=== PATIENT | female | born 1950 | race Caucasian/White ===

== ENCOUNTER → 2024-05-16 12:49 | Outpatient (REF) | payer MEDICARE, OTHER, SELFPAY | LOC: HWRAD 12:49 | PROVIDERS: ATTENDING PHYSICIAN Nurse Practitioner | DX: K85.10 Biliary acute pancreatitis without necrosis or infection (principal) | CPT/HCPCS: 76700 ==

== ENCOUNTER → 2024-06-17 10:55 | Outpatient (REF) | payer MEDICARE, OTHER, SELFPAY | LOC: SDSPAT 10:55 | PROVIDERS: ATTENDING PHYSICIAN Surgery; FAMILY PHYSICIAN Nurse Practitioner | DX: K80.50 Calculus of bile duct without cholangitis or cholecystitis without obstruction (principal) | CPT/HCPCS: 36415; 93005 ==

== ENCOUNTER → 2024-06-26 06:41 | Outpatient (REF) | payer MEDICARE, OTHER, SELFPAY ==
[2024-06-26 07:09] LABS: % Basophils 0.4 % (0-2); % Eosinophils 2.3 % (0-6); % Immature Granulocytes 0.3 % (0-0.5); % Lymphocytes 27.6 % (20.5-51.1); % Monocytes 6.7 % (1.7-9.3); % Neutrophils 62.7 % (42.2-75.2); Absolute Eosinophils 0.2 10^3/uL (0-0.7); Absolute Lymphocytes 2.1 10^3/uL (1.2-3.4); Absolute Monocytes 0.5 10^3/uL (0.1-0.6); Absolute Neutrophils 4.7 10^3/uL (1.4-6.5); Hematocrit 36.3 % (37.0-47.0); Mean Corp Hgb Conc. 33.1 g/dL (33.0-37.0); Mean Corpuscular Volume 84.6 fL (81.0-99.0); Mean Platelet Volume 10.3 fL (7.4-10.4); Nucleated Red Blood Cells % 0 %; Platelet Count 324 10^3/uL (130-400); Red Blood Cell Count 4.29 10^6/uL (4.20-5.40); Red Cell Dist. Width 15.1 % (11.5-14.5); White Blood Cell Count 7.4 10^3/uL (4.8-10.8)
[2024-06-26 07:38] LABS: ALT (SGPT) 17 U/L (0-35); AST (SGOT) 19 U/L (14-36); Albumin 4.4 g/dl (3.5-5.0); Alkaline Phosphatase 111 U/L (38-126); Blood Urea Nitrogen 25 mg/dl (7-17); Calcium 9.9 mg/dl (8.4-10.2); Carbon Dioxide 23 mmol/L (22-30); Chloride 105 mmol/L (98-107); Glucose 146 mg/dl (70-99); HDL Cholesterol 48 mg/dl; LDL Cholesterol, Calculated 116 mg/dl; Potassium 4.6 mmol/L (3.5-5.1); Sodium 144 mmol/L (135-145); Total Bilirubin 0.4 mg/dl (0.2-1.3); Total Cholesterol 189 mg/dl (50-199); Total Protein 6.6 g/dl (6.3-8.2); Triglyceride 126 mg/dl (10-149); Very Low Density Lipoprotein 25 mg/dl (0-30); eGFR 42.88
[2024-06-26 08:08] LABS: TSH 5.93 uIU/ml (0.47-4.68)
[2024-06-26 08:55] LABS: Glycohemoglobin (HgbA1c) 6.6 % (4.0-5.6)
== END ==
LOC: REG 06:41
PROVIDERS: ATTENDING PHYSICIAN Nurse Practitioner
DX: K81.9 Cholecystitis, unspecified (principal); I10 Essential (primary) hypertension; E03.9 Hypothyroidism, unspecified; E78.5 Hyperlipidemia, unspecified; R73.01 Impaired fasting glucose; N18.31 Chronic kidney disease, stage 3a
CPT/HCPCS: 36415; 80053; 80061; 83036; 84443; 85025

== ENCOUNTER 2024-07-10 09:01 | Inpatient (IN) | payer MEDICARE, OTHER, SELFPAY ==
[2024-06-17 12:27] VITALS: BMI 34.1
[2024-07-09] VITALS (19 sets, daily range): BP systolic 40–138; BP diastolic 41–92; BMI 34.1
[2024-07-09] MEDS: TYLENOL 1000 MG PO (06:32)
--- NOTE | 2024-07-09 07:24 | HP.FOC2 ---
Focused History & Physical
Chief Complaint
HPI:
Chief Complaint: Postprandial right upper quadrant pain
HPI / Indication for Planned Procedure: Laparoscopic cholecystectomy
Relevant Past Medical History: Hypertension
Relevant Social History: Negative
Relevant Family History: Negative
Relevant Past Surgical History: Negative
Review of Systems
Review of Pertinent Systems: All Systems Negative
Medication
See Medication form for detailed medications: Yes
Medication List (including Herbals & OTC):
diltiazem HCl 180 mg capsule,24 hr,extended release 180 mg PO BID 06/29/23
labetalol 200 mg tablet 200 mg PO BID 06/29/23
levothyroxine 100 mcg tablet 100 mcg PO .SASU 06/29/23
levothyroxine 125 mcg tablet 125 mcg PO MOTUWETHFR 06/29/23
lisinopril 20 mg-hydrochlorothiazide 25 mg tablet 1 tab PO DAILY 06/29/23
pravastatin 20 mg tablet 20 mg PO NOON 06/29/23
Medications Reviewed: Yes
Allergies and Reactions
Patient has Allergies: No
Noted Allergies and Reactions:
Allergy/AdvReac Type Severity Reaction Status Date / Time
No Known Allergies Allergy Verified 07/09/24 06:30
Pertinent Physical Exam
All Other Systems: Negative
Head/Neck: Normal
Diagnosis / Assessment
Biliary colic
Plan / Procedure
Laparoscopic cholecystectomy
Anesthesia/Sedation to be done by Anesthesia Provider: Yes
--- NOTE | 2024-07-09 07:25 | W.SUR.PREOP ---
Pre-Operative Surgical Note
-
I have examined this patient prior to the performance of the scheduled procedure.
The patient's condition is unchanged from the time of the current History and
Physical and the patient is able to undergo the scheduled procedure.
--- NOTE | 2024-07-09 09:36 | W.IMMPOSTOP ---
Surgical Immed Post Op Note
-
Primary Surgeon: Alberto Sher MD
Assisting Surgeon: None
Pre-op Diagnosis: Biliary colic
Post-op Diagnosis: Chronic cholecystitis, intra-abdominal abscess
Procedure Performed:
1. Laparoscopic subtotal fenestrating cholecystectomy
2. Drainage of intra-abdominal abscess
Anesthesia Type: General
Specimen / Cultures:
1. Gallbladder abscess for Gram stain and culture.
2. Gallbladder and contents
Estimated Blood Loss: 42 cc
Complications: None
Operative Findings: Chronically inflamed gallbladder with dense adhesions overlying the gallbladder. Part of the duodenum was also plastered to the infundibulum. We converted to a top-down subtotal fenestrating cholecystectomy. There was a
significant amount of pus from the gallbladder that was cultured. Part of the gallbladder head perforated posteriorly into the liver with 2 stones lodged in this area were removed in addition to 40 other yellow bosselated stones. There was 1
particularly large stone in the infundibulum that measured 3 x 2 cm. I could not readily visualize the ostium of the cystic duct so no cholangiogram was performed but there was free flow of bile and retrograde manner. A 19 Albanian round Connor drain
was introduced the right lateralmost port and secured at the skin with a 2-0 nylon suture and passed across our field. A large piece of Surgicel was placed along the posterior wall of the gallbladder after fulgurating the mucosa.
POST OP PLAN:
Will consult GI for ERCP
Imaging: None
Labs: Routine AM
Diet: Clears, n.p.o. at midnight
Analgesia: Tylenol 650mg q6 Hailey, Roseanna 5mg q6 PRN, Dilaudid 0.5mg q2h PRN
Neuro/vascular checks: q4h
AC/AP: Hold Therapeutic AC, Ok for DVT PPx
Activity: Ad Renteta
Wound/Incisions/Drains: Routine, ALONZO to bulb suction
Abx: Will plan for antibiotics x 4 days
Dispo: RNF, anticipate patient being admitted for 2 to 3 days pending ERCP timing.
[2024-07-09 10:41] LABS: % Basophils 0.2 % (0-2); % Eosinophils 0.5 % (0-6); % Immature Granulocytes 0.5 % (0-0.5); % Monocytes 2.4 % (1.7-9.3); % Neutrophils 86.4 % (42.2-75.2); Absolute Lymphocytes 0.8 10^3/uL (1.2-3.4); Absolute Monocytes 0.2 10^3/uL (0.1-0.6); Absolute Neutrophils 7.1 10^3/uL (1.4-6.5); Hematocrit 33.3 % (37.0-47.0); Mean Corpuscular Hgb 27.8 pg (27.0-31.0); Mean Corpuscular Volume 84.3 fL (81.0-99.0); Mean Platelet Volume 10.6 fL (7.4-10.4); Nucleated Red Blood Cells % 0 %; Platelet Count 226 10^3/uL (130-400); Red Blood Cell Count 3.95 10^6/uL (4.20-5.40); White Blood Cell Count 8.2 10^3/uL (4.8-10.8)
--- NOTE | 2024-07-09 11:30 | PTCARENOTE ---
Pt received from the PACU via bed. Transport was w/o incident. Pt is drowsy, and easily arousable, answers questions appropriately. VSS, Pt is afebrile. Abd with 4 Lap sites well approx. w/ surgi glue, and Dwaine drain intact to right abd. Pt denies
pain or nausea at this time. Pt instructed on plan of care, Pt verbalized understanding of instructions, call watson is within reach.
--- NOTE | 2024-07-09 11:57 | CON.GI ---
Addendum entered and electronically signed by Yanelis Cleveland MD 07/09/24 16:12:
I saw and examined the patient.
The WALL CRANE OPERATOR's note was reviewed and I agree with the note.
Impression:
Chronic cholecystitis, intra-abdominal abscess - s/p subtotal fenestrated cholecystectomy s/p biliary drain placement 07/09
Plan:
ERCP with stent placement tomorrow
Continue monitor LFT
Pain management as per surgical team
N.p.o. after midnight
Original Note:
Consultation
-
Date/Time Consultation Requested: 07/09/24 1130
Date/Time Consultation Performed: 07/09/24 1140
Requesting Provider: Dr. Walters
Performing Provider: Dr. Cleveland/RIYA Browne
Reason for Consultation: s.p fenestrated cholecystectomy
Medical History
Chief Complaint / HPI
Chief Complaint: bilicary colic
History of Present Illness:
73-year-old female with past medical history of hypertension, hyperlipidemia, hypothyroidism and biliary colic was admitted for cholecystectomy as patient was having postprandial pain. The patient was found to have chronic cholecystitis with
intra-abdominal abscess. She had a laparoscopic subtotal fenestrated cholecystectomy with drainage of intra-abdominal abscess. During the operation it was noted free flow of bile and a retrograde manner. A drain was placed. We are asked to
evaluate for ERCP with stent placement. I am seeing the patient immediately postoperatively. She is in the presence of her and her daughter at bedside. She does have some mild postoperative tenderness as well as some very mild nausea.
Labs this morning WBC 8.2, hemoglobin 11.0, hematocrit 33.3, platelets 226. Preop labs on 06/26/24 with normal LFTs of total bilirubin 0.4, AST 19, ALT 17 alk phos 111.
Past Medical History
Past Medical History: HTN, Hypercholesterolemia, Hypothyroidism and Other (gallstones, migraines)
Past Surgical History: Cholecystectomy, Gynecological (tubal ligation ) and Orthopedic (right knee replacement, discectomy)
Social History
Tobacco: Non-Smoker
Alcohol: None
Drug: None
Personal:
Living: With Family
Family History
Family History: Other (No fam hx IBD or GI malignancy)
Allergies / Home Medications
Allergy/AdvReac Type Severity Reaction Status Date / Time
No Known Allergies Allergy Verified 07/09/24 06:30
�Medication �Instructions �Recorded
diltiazem HCl 180 mg capsule,24 180 mg PO BID 06/29/23
hr,extended release
labetalol 200 mg tablet 200 mg PO BID 06/29/23
levothyroxine 100 mcg tablet 100 mcg PO .SASU 06/29/23
levothyroxine 125 mcg tablet 125 mcg PO MOTUWETHFR 06/29/23
lisinopril 20 1 tab PO DAILY 06/29/23
mg-hydrochlorothiazide 25 mg tablet
pravastatin 20 mg tablet 20 mg PO NOON 06/29/23
acetaminophen 325 mg tablet 650 mg (2 x 325 mg) PO Q6HPRN PRN 07/09/24
mild pain #14 tabs
ibuprofen 600 mg tablet 600 mg PO Q6H PRN pain #14 tabs 07/09/24
tramadol 50 mg tablet 25 mg (1/2 x 50 mg) PO Q6HPRN PRN 07/09/24
severe pain/breakthrough pain #8
tabs
Review of Systems
-
All other systems: A 12 pt ROS was Negative except as stated above in HPI
Vital Signs
Temp Pulse Resp BP Pulse Ox
97 F 68 16 134/56 92
07/09/24 11:30 07/09/24 11:30 07/09/24 11:30 07/09/24 11:30 07/09/24 11:30
Physical Exam
Exam
General: No Apparent Distress
HEENT: Anicteric
Respiratory: Clear (anterior)
Cardiac: Regular Rhythm
GI: Soft and Other (seen immediately post op, mildly distended, clean incisions, hypoactive BS, expected post op tenderness)
Skin: Warm and Dry
Neuro: AO x 3
Psych: Calm
Results
WBC 8.2 10^3/uL (4.8-10.8) 07/09/24 10:26
Hgb 11.0 g/dL (12.0-16.0) L 07/09/24 10:26
Hct 33.3 % (37.0-47.0) L 07/09/24 10:26
MCV 84.3 fL (81.0-99.0) 07/09/24 10:26
Plt Count 226 10^3/uL (130-400) 07/09/24 10:26
Absolute Neuts (auto) 7.1 10^3/uL (1.4-6.5) H 07/09/24 10:26
Diagnostic Image Results:
US Abd 05/16/24:
IMPRESSION:
Mild hepatic steatosis.
Cholelithiasis; gallbladder is mildly distended and contains multiple shadowing stones. Nonspecific gallbladder wall thickening.
Small bilateral renal parapelvic cysts.
Pancreas not visualized, obscured by bowel gas.
Prior GI Procedures:
EGD: 03/19/10 (Dr. Fonseca) - LA Grade A esophagitis. This was biopsied.
- Z-line irregular, at the gastroesophageal junction.
- Gastric mucosal abnormality characterized by erythema.
This was biopsied.
- Erythematous duodenopathy. This was biopsied. Chronic duodenitis. intraepithelial lymphocytosis. Possible navneet gland hyperplasia. TTG WNL.
Colonoscopy: 03/19/10 (Dr. Fonseca) - The examined portion of the ileum was normal. This was
biopsied.
- Erythematous mucosa ileocecal valve. This was biopsied. Ileocolonic mucosa superfical mild acute inflammation and foci of mild acute cryptitis.
Assessment / Plan
-
73-year-old female with past medical history of hypertension, hyperlipidemia, hypothyroidism and biliary colic was admitted for cholecystectomy as patient was having postprandial pain. The patient was found to have chronic cholecystitis with
intra-abdominal abscess. She had a laparoscopic subtotal fenestrated cholecystectomy with drainage of intra-abdominal abscess. During the operation it was noted free flow of bile and a retrograde manner. A drain was placed. We are asked to
evaluate for ERCP with stent placement. Currently the patient is having very mild postop discomfort. ALONZO drain and right upper quadrant with dark bilious drainage. Discussion was had with patient, and daughter about ERCP and stent
placement. Timing to be determined.
Impression:
Chronic cholecystitis, intra-abdominal abscess
Status post subtotal fenestrated cholecystectomy
Plan:
-Continue as per Surgery
-Plan on ERCP, timing to be determined
-Monitor ALONZO drainage
-Further recommendations to be forthcoming.
--From other GI standpoint, patient overdue for routine colonoscopy. Follow up as outpatient.
-
-
Thank you for consultation and allowing me to participate in the patient's care. Please call the chemical operations specialist GI physician during the after hours with any questions or concerns.
[2024-07-09] MEDS: ZOFRAN 4 MG IV (12:34)
[2024-07-09] MEDS: TYLENOL 650 MG PO ×3 (12:34→23:43)
[2024-07-09] MEDS: TORADOL 10 MG IV ×2 (12:34→20:59)
[2024-07-09] MEDS: CARDIZEM 90 MG PO ×2 (12:35→18:23)
--- NOTE | 2024-07-09 12:42 | OR.RPT ---
Operative Report
Operative Report
Patient Name: Annie Forde
: 1950
Date of Operation: 07/09/2024
Preoperative Diagnosis: Biliary colic
Postoperative Diagnosis: Chronic cholecystitis, intra-abdominal abscess, expected bile leak
Procedure(s):
1. Laparoscopic subtotal fenestrating cholecystectomy +22 modifier
2. Drainage of intra-abdominal abscess
Surgeon(s):
Dr. Sher
Director Of Outreach(s):
BRADEN Montgomery
Anesthesia: General
Estimated Blood Loss: 42 cc
Urine Output: None
Drains/Lines/Implants: None
Specimens:
1. Gallbladder abscess for Gram stain and culture
2. Gallbladder and contents
HPI/Surgical Indications:
This is a 73-year-old female with a history of hypertension who presented to our office with 1 month history of postprandial right upper quadrant pain particularly after fatty meals. She has had multiple small attacks. Imaging was concerning for
cholelithiasis. Risks/Benefits/Alternatives were discussed at length, and the patient agreed to proceed with surgery.
Operative Findings: Chronically inflamed gallbladder with dense adhesions overlying the gallbladder. Part of the duodenum was also plastered to the infundibulum. We converted to a top-down subtotal fenestrating cholecystectomy. There was a
significant amount of pus from the gallbladder that was cultured. Part of the gallbladder head perforated posteriorly into the liver with 2 stones lodged in this area were removed in addition to 40 other yellow bosselated stones. There was 1
particularly large stone in the infundibulum that measured 3 x 2 cm. I could not readily visualize the ostium of the cystic duct so no cholangiogram was performed but there was free flow of bile and retrograde manner. A 19 Armenian round Connor drain
was introduced the right lateralmost port and secured at the skin with a 2-0 nylon suture and passed across our field. A large piece of Surgicel was placed along the posterior wall of the gallbladder after fulgurating the mucosa.
Procedure Description:
The patient was brought to the Operating Room and placed in the supine position. Following uneventful induction of general endotracheal anesthesia, an orogastric tube was placed. The abdomen was prepped and draped in the usual sterile fashion. A
timeout was performed confirming the procedure, consent, and that IV antibiotics were infused and sequential compression devices were confirmed to be on. The abdomen was entered using a left subcostal Veress technique which required a single pass
followed by a 5 mm right upper quadrant Optiview trocar. Pneumoperitoneum to 15 mmHg pressure was obtained without difficulty and we confirmed that no injury had occurred during our entry. The patient was positioned in reverse Trendelenberg and
rotated with the right side up slightly. Two 5 mm trocars were then placed along the right subcostal margin, followed by a 12 mm port in the epigastrium. The entire gallbladder was covered with dense periduodenal fat adhesions which were carefully
lysed with sharp, blunt and electrocautery dissection. A locking grasping forceps was placed on the fundus of the gallbladder where it was then retracted cephalad and to the right. We continued dissecting the adhesions off of the gallbladder wall
up until the infundibulum where the duodenum was densely adherent. Using sharp dissection most of the duodenum was dissected off however it was clear that the cystic triangle and the gallbladder itself was so chronically inflamed that there was no
safe area to start so a top-down subtotal fenestrating cholecystectomy was performed. The gallbladder was entered on the medial aspect about a third of the way up. There was immediate discharge of pus from the lumen of the gallbladder which was
cultured. And then suctioned. The gallbladder was opened. There was several very large yellow bosselated gallstones that could be readily identified. Through the right lateralmost port a 5 mm specimen bag was introduced and opened. Roughly 38
stones were then carefully placed into the bag and secured. A very large 3 x 2 cm gallstone that had laid in the infundibulum. Beyond this there were 3 additional stones that were blocking the cystic duct. These were all removed and along with the
anterior surface of the gallbladder placed into a separate Endo Catch bag. The ostium of the cystic duct could not readily be identified however I was able to see free flow of bile into our field. About midway up the posterior wall the gallbladder
was clear there is a perforation posteriorly into the liver where 2 stones have been previously removed. There was some residual pus in this area which was irrigated out. Hemostasis was achieved and the back wall of the gallbladder was fulgurated.
Piece of Surgicel was placed over the mucosa to help with hemostasis. After confirming no residual stones or piece of the gallbladder the specimens as well as a 4 x 4 Ray-Betsy which had been introduced earlier to help catch any debris were removed
under direct visualization. A 19 Armenian round Connor drain was then introduced through the right lateralmost port and secured at the skin with a 2-0 nylon suture. The drain was laid across our surgical field to control her expected bile leak. The
epigastric port was then closed using 0 PDS suture on a Javier Lopez and all ports were then removed under direct visualization. Pneumoperitoneum was evacuated. All trocar sites were closed at the skin level using 4-0 Monocryl followed by
Dermabond. Overall, the patient tolerated the procedure well and was taken to the Recovery Room postoperatively in stable condition.
I was the attending physician and performed the procedure with assistance from the FIRER PORTABLE BOILER above. I was present for all portions of the case, excluding skin closure. A 22 modifier is being requested for this procedure as this was a significantly more
challenging gallbladder than standard requiring additional time, maneuvers and equipment.
Alberto Sher MD
--- NOTE | 2024-07-09 14:28 | CM ---
Reviewed the chart notes and spoke with the patient and her spouse at the bedside. The patient resides with her spouse in a two story home with one step to enter. The patient reports using no DME, nor SNF in the past, but has had VN in the past.
The patient could not recall the name of the agency. The patient confirmed her pharmacy of choice is [facility]. The patient currently has a ALONZO drain in place. CM continues to be available to patient/family and is monitoring
medical plan for needs at discharge.
Plan: Discharge plans will depend on the patient's progress.
[2024-07-09] MEDS: DILAUDID 0.25 MG IV (15:20)
--- NOTE | 2024-07-09 19:33 | PTCARENOTE ---
1834: Pt's demanding to speak to surgeon regarding the Landscape Drafter that was consulted, as it was not Dr Nieto that had been recommended to Pt and earlier. Pt and family reassured that they have every right to choose which
physician they want for their care, but at this late time, the physicians were no longer in the building and would be back in the morning. It was recommended that in the morning a discussion with both surgeon and Landscape Drafter take place. Pt
agreed, and asked her to let the questioning go at this time.
1929: Pt's came out of room and approached the online community manager. Pt asked the online community manager what time the ERCP would be done in the morning. The online community manager explained that for an ERCP often times we won't know until the morning. The pt's
stated to the online community manager 'You are stupid and uneducated' 'I need to speak to someone right now!' verification clerk said 'Sir, I'm trying to help you, that behavior is not necessary' Pt's than threatened 'I better be called first thing in the
morning!' Charge Nurse asked Pt to step back into Pt's room. Pt's shouted 'I'm leaving'.
[2024-07-09] MEDS: TRANDATE 200 MG PO (20:51)
[2024-07-09] MEDS: CARDIZEM PO (21:34)
[2024-07-10] VITALS (12 sets, daily range): BP systolic 75–152; BP diastolic 48–87
[2024-07-10] MEDS: SYNTHROID 125 MCG PO (04:01)
[2024-07-10 05:46] LABS: % Basophils 0.1 % (0-2); % Immature Granulocytes 0.6 % (0-0.5); % Lymphocytes 7.6 % (20.5-51.1); % Monocytes 2.1 % (1.7-9.3); % Neutrophils 89.6 % (42.2-75.2); Absolute Immature Granulocytes 0.1 10^3/uL (0-0.05); Absolute Lymphocytes 0.9 10^3/uL (1.2-3.4); Absolute Monocytes 0.3 10^3/uL (0.1-0.6); Absolute Neutrophils 10.9 10^3/uL (1.4-6.5); Hematocrit 34.4 % (37.0-47.0); Hemoglobin 11.6 g/dL (12.0-16.0); Mean Corp Hgb Conc. 33.7 g/dL (33.0-37.0); Mean Corpuscular Hgb 28.7 pg (27.0-31.0); Mean Corpuscular Volume 85.1 fL (81.0-99.0); Mean Platelet Volume 10.9 fL (7.4-10.4); Nucleated Red Blood Cells % 0 %; Platelet Count 236 10^3/uL (130-400); Red Blood Cell Count 4.04 10^6/uL (4.20-5.40); Red Cell Dist. Width 15.3 % (11.5-14.5); White Blood Cell Count 12.1 10^3/uL (4.8-10.8)
[2024-07-10] MEDS: TYLENOL 650 MG PO ×3 (06:04→23:31)
[2024-07-10 06:05] LABS: ALT (SGPT) 17 U/L (0-35); AST (SGOT) 23 U/L (14-36); Albumin 3.9 g/dl (3.5-5.0); Alkaline Phosphatase 89 U/L (38-126); Blood Urea Nitrogen 33 mg/dl (7-17); Calcium 8.8 mg/dl (8.4-10.2); Carbon Dioxide 19 mmol/L (22-30); Chloride 100 mmol/L (98-107); Estimated Creatinine Clearance 26 ml/min; Glucose 151 mg/dl (70-99); Potassium 4.8 mmol/L (3.5-5.1); Sodium 135 mmol/L (135-145); Total Bilirubin 0.5 mg/dl (0.2-1.3); Total Protein 5.9 g/dl (6.3-8.2); eGFR 29.02
[2024-07-10] MEDS: TRANDATE 200 MG PO ×2 (06:06→20:21)
--- NOTE | 2024-07-10 07:35 | PTCARENOTE ---
Addendum entered by Joleen Chavez RN 07/10/24 12:05:
pt returned to room from PACU @1200. pt assisted to stand at side of stretcher and return to bed with assist of UNIX ANALYST.
pt denies c/o pain or further nausea- c/o feeling thirsty. care ongoing.
Original Note:
pt sent to GI lab via stretcher w/transport at this time.
[2024-07-10] MEDS: CARDIZEM PO ×2 (08:00→15:24)
--- NOTE | 2024-07-10 09:40 | W.PN.UPDATE ---
Update Note
Progress Note Update
Attempted to see pt. Off floor for ERCP.
[2024-07-10] MEDS: ZOFRAN 4 MG IV (11:48)
[2024-07-10] MEDS: TYLENOL PO (12:00)
--- NOTE | 2024-07-10 14:12 | CM ---
Addendum entered by Amarilis Carranza RN 07/10/24 15:13:
Per VN, they attempted to contact patient to set time up. Patient dismissed their service.
Original Note:
Reviewed the chart notes and spoke with the patient and her spouse at the bedside. ALONZO drain remains. Discussed VN services, patient selected VN, referral sent. CM continues to be available to patient/family and is monitoring medical plan for
needs at discharge.
Plan: Discharge to home when medically stable with VN services.
--- NOTE | 2024-07-10 14:45 | W.PN.GS2 ---
Today's Communication / Plan
-
Diet as paul
Monitor drain
Assessment / Plan
-
73F POD1 s/p subtotal fenestrating lap arabella for CCC, PPD0 s/p successful ERCP and stenting
Doing well post-procedure
Plan for cont IV abx
Adjust cards med dose per pt request (made c/w her home meds)
Monitor drain output
Trend labs
DVT ppx
OK for diet as paul
Subjective Data
-
Date of Service: July 10, 2024
AFVSS, OOBTC, pain controlled, hungry
Objective Data
-
Intake and Output
07/09/24 07/10/24 07/11/24
06:59 06:59 06:59
Intake Total 2140 / 2140 100 / 100
Output Total 280 / 280 75 / 75
Balance 1860 / 1860 25 / 25
Intake:
Oral fluids 1440 / 1440
IV fluids (Total) 700 / 700 100 / 100
Normosol 100 / 100 100 / 100
Output:
Drain Output (Total) 280 / 280 75 / 75
Right Wilberto-Dee 280 / 280 75 / 75
Other:
Number of approximated MODERATE 1
amounts of urine
Vital Signs
Temp Pulse Resp BP Pulse Ox
97.8 F 73 16 141/62 96
07/10/24 13:00 07/10/24 13:00 07/10/24 13:00 07/10/24 13:00 07/10/24 13:00
Lab Results
07/10/24 05:13
07/10/24 05:13
Calcium 8.8 mg/dl (8.4-10.2) 07/10/24 05:13
Total Bilirubin 0.5 mg/dl (0.2-1.3) 07/10/24 05:13
AST 23 U/L (14-36) 07/10/24 05:13
ALT 17 U/L (0-35) 07/10/24 05:13
Alkaline Phosphatase 89 U/L (38-126) 07/10/24 05:13
Total Protein 5.9 g/dl (6.3-8.2) L 07/10/24 05:13
Albumin 3.9 g/dl (3.5-5.0) 07/10/24 05:13
Physical Exam
-
Gen: NAD
Abd: soft, approp ttp, inciisons cdi with glue, drain with scant bile tinged fluid
[2024-07-10] MEDS: ZOSYN 50 IV ×2 (16:21→21:29)
[2024-07-10] MEDS: FLUSH (NSS) 2 FLUSH IV (16:22)
[2024-07-10] MEDS: TORADOL 10 MG IV (21:29)
[2024-07-10] MEDS: CARDIZEM CD 180 MG PO (21:29)
[2024-07-11 03:34] VITALS: BP 116/53
[2024-07-11] MEDS: ZOSYN 50 IV ×4 (03:35→21:31)
[2024-07-11] MEDS: FLUSH (NSS) 1 FLUSH IV (03:35)
[2024-07-11] MEDS: SYNTHROID 125 MCG PO (03:35)
[2024-07-11] MEDS: TYLENOL 650 MG PO ×4 (06:37→23:45)
[2024-07-11] MEDS: TRANDATE 200 MG PO ×2 (06:37→20:24)
[2024-07-11 06:38] LABS: % Basophils 0.1 % (0-2); % Immature Granulocytes 0.5 % (0-0.5); % Lymphocytes 5.5 % (20.5-51.1); % Neutrophils 89.9 % (42.2-75.2); Absolute Immature Granulocytes 0.1 10^3/uL (0-0.05); Absolute Monocytes 0.7 10^3/uL (0.1-0.6); Absolute Neutrophils 16.2 10^3/uL (1.4-6.5); Hematocrit 32.5 % (37.0-47.0); Hemoglobin 10.5 g/dL (12.0-16.0); Mean Corp Hgb Conc. 32.3 g/dL (33.0-37.0); Mean Corpuscular Hgb 27.9 pg (27.0-31.0); Mean Corpuscular Volume 86.4 fL (81.0-99.0); Mean Platelet Volume 11.4 fL (7.4-10.4); Nucleated Red Blood Cells % 0 %; Platelet Count 237 10^3/uL (130-400); Red Blood Cell Count 3.76 10^6/uL (4.20-5.40); Red Cell Dist. Width 15.5 % (11.5-14.5)
[2024-07-11 07:00] LABS: ALT (SGPT) 16 U/L (0-35); AST (SGOT) 19 U/L (14-36); Albumin 3.4 g/dl (3.5-5.0); Alkaline Phosphatase 76 U/L (38-126); Blood Urea Nitrogen 46 mg/dl (7-17); Calcium 8.4 mg/dl (8.4-10.2); Carbon Dioxide 21 mmol/L (22-30); Chloride 98 mmol/L (98-107); Estimated Creatinine Clearance 24 ml/min; Glucose 137 mg/dl (70-99); Potassium 4.7 mmol/L (3.5-5.1); Sodium 132 mmol/L (135-145); Total Bilirubin 0.4 mg/dl (0.2-1.3); Total Protein 5.2 g/dl (6.3-8.2); eGFR 25.57
[2024-07-11 08:00] VITALS: BP 131/55
[2024-07-11] MEDS: CARDIZEM CD 180 MG PO ×2 (08:37→21:31)
--- NOTE | 2024-07-11 08:40 | W.PN.GI.CBS2 ---
Today's Communication / Plan
-
follow up with in 4 weeks
Assessment / Plan
-
73-year-old female with past medical history of hypertension, hyperlipidemia, hypothyroidism and biliary colic was admitted for cholecystectomy as patient was having postprandial pain. The patient was found to have chronic cholecystitis with
intra-abdominal abscess. She had a laparoscopic subtotal fenestrated cholecystectomy with drainage of intra-abdominal abscess. During the operation it was noted free flow of bile and a retrograde manner. A drain was placed. We are asked to
evaluate for ERCP with stent placement. Currently the patient is having very mild postop discomfort. ALONZO drain and right upper quadrant with dark bilious drainage. Discussion was had with patient, and daughter about ERCP and stent
placement. Timing to be determined.
Impression:
Chronic cholecystitis, intra-abdominal abscess
Status post subtotal fenestrated cholecystectomy
ERCP 07/11
Impression: - The major papilla was adjacent to a diverticulum.
- A bile leak was found.
- A pancreatic sphincterotomy was performed.
- A biliary sphincterotomy was performed.
- One plastic stent was placed into the common bile
duct proximal to the cystic duct take off.
- One plastic stent was placed into the ventral
pancreatic duct.
Recommendation: - [facility] care.
- Clear liquid diet today.
- Observe ALONZO drain output.
- Return to my office in 4 weeks.
Plan:
-Continue further care as per Surgery
- follow up with in 4 weeks- needs repeat ERCP with stent removal as outpatient ( after ALONZO drain removal )
- will s/o. Please call us back if any questions
Total Time Spent with Patient (in minutes): 35
Subjective
Subjective
Date of Service: July 11, 2024
denies any abd pain/ N/V. tolerating diet . ALONZO drain less output
Objective
Data Reviewed
Laboratory Data:
Laboratory Results
07/11/24 05:27
07/11/24 05:27
Laboratory Results
Total Bilirubin 0.4 mg/dl (0.2-1.3) 07/11/24 05:27
AST 19 U/L (14-36) 07/11/24 05:27
ALT 16 U/L (0-35) 07/11/24 05:27
Alkaline Phosphatase 76 U/L (38-126) 07/11/24 05:27
Vital Signs and I&O:
Vital Signs
Temp Pulse Resp BP Pulse Ox
98.7 F 67 18 131/55 95
07/11/24 08:00 07/11/24 08:37 07/11/24 08:00 07/11/24 08:37 07/11/24 08:00
I&O
07/10/24 07/11/24 07/12/24
06:59 06:59 06:59
Intake Total 2140 / 2140 1230 / 1230
Output Total 280 / 280 205 / 205
Balance 1860 / 1860 1025 / 1025
Physical Exam
Physical Exam
GI: Soft, Non Distended and Non Tender
--- NOTE | 2024-07-11 09:09 | W.PN.GS2 ---
Today's Communication / Plan
-
`
Assessment / Plan
-
Assessment: 73F POD2 s/p subtotal fenestrating lap arabella for CCC, PPD1 s/p ERCP and stenting
AFVSS
WBC 18 -likely reactive no signs of bile peritonitis on examination, but continue empiric biliary coverage with antibiotics given severity of cholecystitis
ALONZO output appropriate diminish
Plan: Continue Zosyn with plan to transition to Augmentin on discharge home
Maintain ALONZO -will be discharged with drain in place
DVT ppx
OK for diet as paul
Possible DC in p.m. versus tomorrow
Subjective Data
-
Date of Service: July 11, 2024
Patient seen and examined.
Right-sided postoperative abdominal discomfort/tenderness but controlled
Ate breakfast without exacerbation of pain
No nausea
No bowel movement yet postoperatively
Objective Data
-
Intake and Output
07/10/24 07/11/24 07/12/24
06:59 06:59 06:59
Intake Total 2140 / 2140 1230 / 1230
Output Total 280 / 280 / 205
Balance 1860 / 1860 1025 / 1025
Intake:
Oral fluids 1440 / 1440 480 / 480
IV fluids (Total) 700 / 700 600 / 600
Normosol 100 / 100 100 / 100
IV piggybacks 150 / 150
Output:
Drain Output (Total) 280 / 280 205 / 205
Right Wilberto-Dee 280 / 280 / 205
Other:
Number of approximated MODERATE 1 3
amounts of urine
Vital Signs
Temp Pulse Resp BP Pulse Ox
98.7 F 67 18 131/55 95
07/11/24 08:00 07/11/24 08:37 07/11/24 08:00 07/11/24 08:37 07/11/24 08:00
Lab Results
07/11/24 05:27
07/11/24 05:27
Calcium 8.4 mg/dl (8.4-10.2) 07/11/24 05:27
Total Bilirubin 0.4 mg/dl (0.2-1.3) 07/11/24 05:27
AST 19 U/L (14-36) 07/11/24 05:
ALT 16 U/L (0-35) 07/11/24 05:27
Alkaline Phosphatase 76 U/L (38-126) 07/11/24 05:27
Total Protein 5.2 g/dl (6.3-8.2) L 07/11/24 05:27
Albumin 3.4 g/dl (3.5-5.0) L 07/11/24 05:27
Physical Exam
-
NAD AAOx3
ABD: Soft, nondistended, mild tenderness palpation right side, no rebound rigidity or guarding
ALONZO bulb to suction with bilious contents, about 10 mL or so
--- NOTE | 2024-07-11 09:48 | CM ---
Addendum entered by Amarilis Carranza RN 07/11/24 13:39:
IMM reviewed and placed on chart.
Original Note:
Reviewed the chart notes and spoke with the patient and spouse at the bedside. Discussed with the patient call CM received yesterday with regarding to cancelling [facility] services. Patient denied cancelling and will need [facility] due to ALONZO drain. CM
continues to be available to patient/family and is monitoring medical plan for needs at discharge.
Plan: Discharge to home with [facility] services. Referral sent via [facility].
[2024-07-11] MEDS: NSS 500 IV ×2 (10:47→21:31)
[2024-07-11 10:53] LABS: Lipase 288 U/L (23-300)
[2024-07-11 16:00] VITALS: BP 137/61
[2024-07-11] MEDS: HEPARIN 5000 UNITS SC ×2 (16:33→23:44)
[2024-07-11] MEDS: PROTONIX 40 MG PO (20:37)
[2024-07-11 22:59] VITALS: BP 136/66
[2024-07-12] MEDS: ZOSYN 50 IV ×2 (04:29→09:49)
[2024-07-12] MEDS: SYNTHROID 125 MCG PO (04:31)
[2024-07-12 05:48] LABS: % Basophils 0.1 % (0-2); % Eosinophils 0.1 % (0-6); % Immature Granulocytes 0.2 % (0-0.5); % Lymphocytes 17.2 % (20.5-51.1); % Neutrophils 76.4 % (42.2-75.2); Absolute Lymphocytes 2.1 10^3/uL (1.2-3.4); Absolute Monocytes 0.7 10^3/uL (0.1-0.6); Absolute Neutrophils 9.2 10^3/uL (1.4-6.5); Hematocrit 31.4 % (37.0-47.0); Hemoglobin 10.3 g/dL (12.0-16.0); Mean Corp Hgb Conc. 32.8 g/dL (33.0-37.0); Mean Corpuscular Hgb 28.3 pg (27.0-31.0); Mean Corpuscular Volume 86.3 fL (81.0-99.0); Mean Platelet Volume 11.2 fL (7.4-10.4); Nucleated Red Blood Cells % 0 %; Platelet Count 234 10^3/uL (130-400); Red Blood Cell Count 3.64 10^6/uL (4.20-5.40); Red Cell Dist. Width 15.8 % (11.5-14.5)
[2024-07-12 06:06] LABS: ALT (SGPT) 24 U/L (0-35); AST (SGOT) 26 U/L (14-36); Albumin 3.4 g/dl (3.5-5.0); Alkaline Phosphatase 75 U/L (38-126); Blood Urea Nitrogen 39 mg/dl (7-17); Calcium 8.2 mg/dl (8.4-10.2); Carbon Dioxide 21 mmol/L (22-30); Chloride 105 mmol/L (98-107); Estimated Creatinine Clearance 31 ml/min; Glucose 110 mg/dl (70-99); Potassium 4.2 mmol/L (3.5-5.1); Sodium 138 mmol/L (135-145); Total Bilirubin 0.5 mg/dl (0.2-1.3); Total Protein 5.3 g/dl (6.3-8.2); eGFR 36.12
[2024-07-12] MEDS: TYLENOL 650 MG PO ×2 (06:33→12:16)
[2024-07-12] MEDS: TRANDATE 200 MG PO (06:33)
[2024-07-12 07:40] VITALS: BP 141/65
--- NOTE | 2024-07-12 09:12 | W.PN.GS2 ---
Addendum entered and electronically signed by Alberto Sher MD 07/12/24 12:05:
I saw and examined the patient independently.
[facility]'s note was reviewed and I agree with the note, assessment and plan except where noted below.
Comment: Postop day 3 from a subtotal cholecystectomy and PPD #2 from an ERCP. Clinically doing well
Okay to DC home today.
Antibiotics x 1 day.
Follow-up with me next week scheduled for possible drain removal.
Follow-up with Dr. Nieto in 4 to 6 weeks also arranged. Discharge instructions reviewed with patient, [facility] set up for drain care.
Original Note:
Today's Communication / Plan
-
dispo planning
Assessment / Plan
-
Assessment: 73F POD 3 s/p subtotal fenestrating lap arabella for CCC, PPD 2 s/p ERCP and stenting
AFVSS
WBC down to 12 from 18 -likely reactive no signs of bile peritonitis on examination, but continue empiric biliary coverage with antibiotics given severity of cholecystitis
ALONZO outputs still bile tinged as expected
Cr elevated but at baseline
Plan: Continue Zosyn with plan to transition to Augmentin on discharge home
Maintain ALONZO -will be discharged with drain in place with plan to remove as OP
Stent removal as OP with Dr. Nieto in 4-6 weeks
Home care being arranged
DVT ppx
OK for diet as paul
D/C today
Subjective Data
-
Date of Service: July 12, 2024
Patient seen and examined at bedside. Denies n/v. Tolerating diet. Had some heartburn/epigastric discomfort with caesar salad last night but now resolved. Pain to upper abdominal incisions
Objective Data
-
Intake and Output
07/11/24 07/12/24 07/13/24
06:59 06:59 06:59
Intake Total 1230 / 1230 2079
Output Total 135 / 135
Balance 1025 / 1025 1944 / 1944
Intake:
Oral fluids 480 / 480 1380 / 1380
IV fluids (Total) 600 / 600 600 / 600
Normosol 100 / 100
IV piggybacks 150 / 150 100 / 100
Output:
Drain Output (Total) 135 / 135
Right Wilberto-Dee 135 135
Other:
Number of approximated SMALL 4
amounts of urine
Number of approximated MODERATE 3 2
amounts of urine
Vital Signs
Temp Pulse Resp BP Pulse Ox
98.2 F 66 16 141/65 95
07/12/24 07:40 07/12/24 07:40 07/12/24 07:40 07/12/24 07:40 07/12/24 07:40
Lab Results
07/12/24 05:00
07/12/24 05:00
Calcium 8.2 mg/dl (8.4-10.2) L 07/12/24 05:00
Total Bilirubin 0.5 mg/dl (0.2-1.3) 07/12/24 05:00
AST 26 U/L (14-36) 07/12/24 05:00
ALT 24 U/L (0-35) 07/12/24 05:00
Alkaline Phosphatase 75 U/L (38-126) 07/12/24 05:00
Total Protein 5.3 g/dl (6.3-8.2) L 07/12/24 05:00
Albumin 3.4 g/dl (3.5-5.0) L 07/12/24 05:00
Physical Exam
-
NAD AAOx3
ABD: Soft, nondistended, mild tenderness palpation right side, no rebound rigidity or guarding
ALONZO bulb to suction with bilious contents
--- NOTE | 2024-07-12 09:46 | VNURNOTE ---
Home Health Liaison met with patient to discuss [facility] nurse/therapy, visits, schedule and homebound status. Patient is agreeable and understands that visits at home will be 2-3 x per week to assess and teach medical and drain management.
[facility] brochure provided with contact information. Patient is aware that [facility] will contact them for start of care in 1-2 days after discharge from .
[facility] referral accepted in [facility].
[2024-07-12] MEDS: PROTONIX 40 MG PO (09:51)
[2024-07-12] MEDS: HEPARIN 5000 UNITS SC (09:51)
[2024-07-12] MEDS: CARDIZEM CD 180 MG PO (09:51)
--- NOTE | 2024-07-12 10:35 | W.DCSUMMARY ---
Documented by User: [email or web address] Wells 07/12/24 10:57
Discharge Summary
Discharge Data
Date of Admission: 07/10/24
Date of Discharge: 07/12/24
-
Pending Results: No
Hospital Course
73 yo female with postprandial right upper quadrant pain who underwent scheduled laparoscopic cholecystectomy with intraabdominal abscess and chronic cholecystitis noted intraoperatively. Given the extent of her disease and dense adhesions, a top
down subtotal fenestrating cholecystectomy was preformed and ALONZO drain left in place for management of expected bile leak. Gastroenterology was consulted for ERCP which was preformed on post operative day 1 with successful stent placement.
Intraoperative abscess cultures were sent and grew both klebsiella p. and e. coli. She was maintained on culture sensitive antibiotics while inpatient and discharged with 3 additional doses of Augmentin. Prior to discharge, she was able to tolerate
a regular diet with good control of pain.
Discharge Plan
-
Patient Disposition: Home (Routine Discharge)
Discharge Diagnosis/Procedures: Biliary colic. Laparoscopic fenestrating cholecystectomy. ERCP for stent placement
Condition: Good
Diet: No restrictions
Activity: No strenuous activity
Driving Restrictions: As prior to admission
Bathing Restrictions: OK to Shower
Other Services: [facility]
Activity Restrictions/Additional Instructions:
Instructions following Laparoscopic Cholecystectomy
Please call [phone] if you have any questions or concerns after your surgery.
Wound Care:
Your incisions are covered with skin glue which will come off on its own in 5-10 days.
It is ok to shower the day after your surgery. Do not scrub the incisions, let soap and water wash over them and pat dry.
� Bruising around your incisions is normal.
� Using ice packs will help minimize this swelling.
� No swimming or soaking incisions for 1 week.
� Your stitches will dissolve and do not need to be removed.
Urinary retention:
If you are unable to urinate 6-8 hours after your surgery, please call [phone] to discuss further management.
Activity:
No heavy lifting more than 15 pounds for the next 3 weeks, then you may gradually lift heavier objects as tolerated by discomfort. Otherwise activity as tolerated by your comfort level.
Pain Management:
Use Tylenol, ibuprofen and ice packs to treat your pain.
� You may take 650 milligrams of Tylenol (Max 3 grams per day) every 6 hours, and 600 mg of ibuprofen also every 6 hours. (you can alternate them every 3 hours)
� You may use an ice pack to your incision as needed.
� If you still have pain not controlled by these measures, take your prescription pain medication as prescribed.
Medications:
You may resume your home medications.
Bowel Medications:
Prescription pain medication can make you constipated. If you take this medication, also take colace 100 mg twice daily (this is over the counter). If this is not sufficient, you may take Miralax (polyethylene glycol) to help move your bowels.
Diet:
After your procedure, there are no dietary restrictions. However, you may notice some loose stools with fatty meals for up to 4 weeks after surgery. If this is the case, please adjust to a low fat diet as needed.
Driving restrictions:
No driving if you are taking prescription pain medication or if you think your normal reaction time and attentiveness has been slowed by your surgery.
Things to Look out for:
Worsening Abdominal pain, fever, jaundice, redness or drainage from incision
Call Doctor for:
Please call if you notice worsening redness or drainage from incision(s) lasting longer than 5 days after your surgery, any foul-smelling drainage from the incision, pain not controlled by pain medications, persistent nausea and vomiting, or for any
fevers greater than 101.3 F. The number for questions/concerns is [phone]
Follow-up:
A follow-up appointment will be scheduled with your surgeon in 3-4 weeks. Please call prior to your appointment if you have any questions or concerns. [phone]
Instructions: Wilberto-Dee Drain, How to Keep Track of Your Drainage
Referrals:
Mario Nieto MD [Active] - in one month (for stent removal)
Alberto Sher MD [Active] - in less than 1 week (for drain removal)
Julia Win CRNP [Family Provider] -
Prescriptions:
New
acetaminophen [acetaminophen] 325 mg tablet
650 mg PO Q6HPRN PRN (Reason: mild pain) Qty: 14 0RF
tramadol 50 mg tablet
25 mg PO Q6HPRN PRN (Reason: severe pain/breakthrough pain) Qty: 8 0RF
ibuprofen 400 mg tablet
400 mg PO Q8H PRN (Reason: moderate pain) Qty: 1 0RF
polyethylene glycol 3350 [polyethylene glycol 3350] 17 gram powder in packet
17 grams PO DAILYPRN PRN (Reason: constipation) Qty: 1 0RF
amoxicillin-pot clavulanate 875-125 mg tablet
1 tab PO Q12 Qty: 3 0RF
Continued
labetalol 200 mg Tablet
200 mg PO BID
diltiazem HCl 180 mg Capsule,Extended Release 24 Hr
180 mg PO BID
levothyroxine 100 mcg Tablet
100 mcg PO .SASU
levothyroxine 125 mcg Tablet
125 mcg PO MOTUWETHFR
lisinopril-hydrochlorothiazide 20-25 mg Tablet
1 tab PO DAILY
pravastatin 20 mg Tablet
20 mg PO NOON
Discharge Orders:
Discharge Patient (As Directed); Ordered 07/12/24
Ordered By: Kassie Lui
Discharge Date and Time
Print Language: PUERTO RICAN

Documented by User: Alberto Sher MD 07/12/24 12:04
Discharge Summary
Discharge Data
Date of Admission: 07/10/24
Date of Discharge: 07/12/24
Discharge Plan
-
Patient Disposition: Home (Routine Discharge)
Discharge Diagnosis/Procedures: Biliary colic. Laparoscopic fenestrating cholecystectomy. ERCP for stent placement
Condition: Good
Diet: No restrictions
Activity: No strenuous activity
Driving Restrictions: As prior to admission
Bathing Restrictions: OK to Shower
Other Services: [facility]N
Activity Restrictions/Additional Instructions:
Instructions following Laparoscopic Cholecystectomy
Please call [phone] if you have any questions or concerns after your surgery.
Wound Care:
Your incisions are covered with skin glue which will come off on its own in 5-10 days.
It is ok to shower the day after your surgery. Do not scrub the incisions, let soap and water wash over them and pat dry.
� Bruising around your incisions is normal.
� Using ice packs will help minimize this swelling.
� No swimming or soaking incisions for 1 week.
� Your stitches will dissolve and do not need to be removed.
Urinary retention:
If you are unable to urinate 6-8 hours after your surgery, please call [phone] to discuss further management.
Activity:
No heavy lifting more than 15 pounds for the next 3 weeks, then you may gradually lift heavier objects as tolerated by discomfort. Otherwise activity as tolerated by your comfort level.
Pain Management:
Use Tylenol, ibuprofen and ice packs to treat your pain.
� You may take 650 milligrams of Tylenol (Max 3 grams per day) every 6 hours, and 600 mg of ibuprofen also every 6 hours. (you can alternate them every 3 hours)
� You may use an ice pack to your incision as needed.
� If you still have pain not controlled by these measures, take your prescription pain medication as prescribed.
Medications:
You may resume your home medications.
Bowel Medications:
Prescription pain medication can make you constipated. If you take this medication, also take colace 100 mg twice daily (this is over the counter). If this is not sufficient, you may take Miralax (polyethylene glycol) to help move your bowels.
Diet:
After your procedure, there are no dietary restrictions. However, you may notice some loose stools with fatty meals for up to 4 weeks after surgery. If this is the case, please adjust to a low fat diet as needed.
Driving restrictions:
No driving if you are taking prescription pain medication or if you think your normal reaction time and attentiveness has been slowed by your surgery.
Things to Look out for:
Worsening Abdominal pain, fever, jaundice, redness or drainage from incision
Call Doctor for:
Please call if you notice worsening redness or drainage from incision(s) lasting longer than 5 days after your surgery, any foul-smelling drainage from the incision, pain not controlled by pain medications, persistent nausea and vomiting, or for any
fevers greater than 101.3 F. The number for questions/concerns is [phone]
Follow-up:
A follow-up appointment will be scheduled with your surgeon in 3-4 weeks. Please call prior to your appointment if you have any questions or concerns. [phone]
Instructions: Wilberto-Dee Drain, How to Keep Track of Your Drainage
Referrals:
Mario Nieto MD [Active] - in one month (for stent removal)
Alberto Sher MD [Active] - in less than 1 week (for drain removal)
Julia Win CRNP [Family Provider] -
Prescriptions:
New
acetaminophen [acetaminophen] 325 mg tablet
650 mg PO Q6HPRN PRN (Reason: mild pain) Qty: 14 0RF
tramadol 50 mg tablet
25 mg PO Q6HPRN PRN (Reason: severe pain/breakthrough pain) Qty: 8 0RF
ibuprofen 400 mg tablet
400 mg PO Q8H PRN (Reason: moderate pain) Qty: 1 0RF
polyethylene glycol 3350 [polyethylene glycol 3350] 17 gram powder in packet
17 grams PO DAILYPRN PRN (Reason: constipation) Qty: 1 0RF
amoxicillin-pot clavulanate 875-125 mg tablet
1 tab PO Q12 Qty: 3 0RF
Continued
labetalol 200 mg Tablet
200 mg PO BID
diltiazem HCl 180 mg Capsule,Extended Release 24 Hr
180 mg PO BID
levothyroxine 100 mcg Tablet
100 mcg PO .SASU
levothyroxine 125 mcg Tablet
125 mcg PO MOTUWETHFR
lisinopril-hydrochlorothiazide 20-25 mg Tablet
1 tab PO DAILY
pravastatin 20 mg Tablet
20 mg PO NOON
Discharge Orders:
Discharge Patient (As Directed); Ordered 07/12/24
Ordered By: Kassie Lui
Discharge Date and Time
Print Language: PUERTO RICAN
--- NOTE | 2024-07-12 10:58 | CM ---
Reviewed the chart notes. Patient for discharge today.
Plan: Discharge to home today with [facility] services.
[2024-07-12] MEDS: MIRALAX 17 GRAMS PO (11:18)
[2024-07-12 12:25] VITALS: BP 116/59
--- NOTE | 2024-07-12 12:46 | PTCARENOTE ---
pt educated re: ALONZO drain care. pt successfully emptied ALONZO drain without difficulty. pt verbalized understanding of ALONZO drain care at home.
== END 2024-07-12 15:07 | disposition home health service (06) | DRG 417 ==
LOC: 2 SOUTH 09:01
PROVIDERS: Internal Medicine Gastroenterology; ADMITTING PHYSICIAN Surgery; CONSULT PHYSICIAN Internal Medicine Gastroenterology; FAMILY PHYSICIAN Nurse Practitioner
PROC: 0FT44ZZ Resection of Gallbladder, Percutaneous Endoscopic Approach (ICD-10-PCS; 2024-07-09)
PROC: 0W9G4ZZ Drainage of Peritoneal Cavity, Percutaneous Endoscopic Approach (ICD-10-PCS; 2024-07-09)
PROC: 0F798DZ Dilation of Common Bile Duct with Intraluminal Device, Via Natural or Artificial Opening Endoscopic (ICD-10-PCS; 2024-07-10)
PROC: 0F7D8DZ Dilation of Pancreatic Duct with Intraluminal Device, Via Natural or Artificial Opening Endoscopic (ICD-10-PCS; 2024-07-10)
DX: K80.10 Calculus of gallbladder with chronic cholecystitis without obstruction (principal); K65.1 Peritoneal abscess; K82.8 Other specified diseases of gallbladder; K66.0 Peritoneal adhesions (postprocedural) (postinfection); K83.9 Disease of biliary tract, unspecified
CPT/HCPCS: 88304; 74330; 76000; 80053; 83690; 85025; 87070; 87075; 87077; 87186; 87205; A4300; C1769; C1776; C2617; C2625

== ENCOUNTER → 2024-07-31 15:00 | Outpatient (REF) | payer MEDICARE, OTHER, SELFPAY | LOC: CLAB 15:00 | PROVIDERS: ATTENDING PHYSICIAN Surgery | DX: R22.2 Localized swelling, mass and lump, trunk (principal) | CPT/HCPCS: 87070; 87077; 87205 ==

== ENCOUNTER 2024-09-19 06:27 | Day surgery (SDC) | payer MEDICARE, OTHER, SELFPAY ==
[2024-09-19 08:23] VITALS: BMI 33.1
[2024-09-19 08:24] VITALS: BMI 33.1
[2024-09-19 08:25] VITALS: BP 112/50
[2024-09-19 09:32] VITALS: BP 108/57
[2024-09-19 09:45] VITALS: BP 127/56
[2024-09-19 09:56] VITALS: BP 125/47
== END 2024-09-19 10:03 | disposition home or self-care (01) ==
LOC: GI 06:27
PROVIDERS: ATTENDING PHYSICIAN Internal Medicine Gastroenterology
DX: Z46.59 Encounter for fitting and adjustment of other gastrointestinal appliance and device (principal); K57.10 Diverticulosis of small intestine without perforation or abscess without bleeding
CPT/HCPCS: 43247

== ENCOUNTER → 2025-08-18 10:25 | Outpatient (REF) | payer MEDICARE, OTHER, SELFPAY ==
[2025-08-18 11:17] LABS: Hematocrit 36.1 % (37.0-47.0); Hemoglobin 12.0 g/dL (12.0-16.0); Mean Corp Hgb Conc. 33.2 g/dL (33.0-37.0); Mean Corpuscular Volume 85.5 fL (81.0-99.0); Nucleated Red Blood Cells % 0 %; Platelet Count 281 10^3/uL (130-400); Red Cell Dist. Width 14.5 % (11.5-14.5)
[2025-08-18 12:00] LABS: ALT (SGPT) 16 U/L (0-35); AST (SGOT) 22 U/L (14-36); Albumin 4.5 g/dl (3.5-5.0); Alkaline Phosphatase 90 U/L (38-126); Blood Urea Nitrogen 24 mg/dl (7-17); Calcium 9.4 mg/dl (8.4-10.2); Carbon Dioxide 20 mmol/L (22-30); Chloride 107 mmol/L (98-107); Glucose 116 mg/dl (70-99); HDL Cholesterol 53 mg/dl; LDL Cholesterol, Calculated 122 mg/dl; Potassium 5.1 mmol/L (3.5-5.1); Sodium 138 mmol/L (135-145); Total Protein 6.7 g/dl (6.3-8.2); Very Low Density Lipoprotein 20 mg/dl (0-30); eGFR 58.39
[2025-08-18 12:04] LABS: Glycohemoglobin (HgbA1c) 6.7 % (4.0-5.9)
[2025-08-18 12:27] LABS: TSH 2.21 uIU/ml (0.47-4.68)
== END ==
LOC: REG 10:25
PROVIDERS: ATTENDING PHYSICIAN Nurse Practitioner
DX: Z23 Encounter for immunization (principal); I10 Essential (primary) hypertension; E03.9 Hypothyroidism, unspecified; E78.5 Hyperlipidemia, unspecified; R73.9 Hyperglycemia, unspecified; R73.01 Impaired fasting glucose
CPT/HCPCS: 36415; 80053; 80061; 83036; 84443; 85025